=== PATIENT | female | born 1950 | race Caucasian/White ===

== ENCOUNTER 2017-12-08 17:48 | Inpatient (IN) | payer MEDICARE, OTHER ==
[2017-12-08 18:00] VITALS: BP 146/56
[2017-12-08] MEDS ORDERED: VISTARIL 25 MG25 M1 PO (18:35)
[2017-12-08] MEDS ORDERED: NEURONTIN 300300 M1 PO (18:35)
[2017-12-08] MEDS ORDERED: LASIX 40 MG TAB40 M2 PO (18:35)
[2017-12-08] MEDS ORDERED: HYDROCHLOROTHIA25 M2 PO (18:36)
[2017-12-08] MEDS ORDERED: KLOR-CON 1010 MEQ PO (18:36)
[2017-12-08] MEDS ORDERED: COZAAR 50 MG TA50 M2 PO (18:38)
[2017-12-08] MEDS ORDERED: BUSPIRONE HCL5 MG PO (18:38)
[2017-12-08] MEDS ORDERED: AMBIEN 5 MG TABL5 M1 PO (18:39)
[2017-12-08] MEDS ORDERED: LANTUS PO (18:40)
[2017-12-08] MEDS ORDERED: HUMULIN R100 UNIT/M SUBQ (18:43)
[2017-12-08] MEDS ORDERED: CELEXA40 MG PO (18:43)
[2017-12-08] MEDS ORDERED: OXYBUTYNIN 5 MG5 M2 PO (18:44)
[2017-12-08] MEDS ORDERED: CYMBALTA60 MG PO (18:44)
[2017-12-08 20:00] VITALS: BP 129/46
[2017-12-08 20:11] LABS: ALBUMIN 3.5 g/dL (3.4-5.0); ALKALINE PHOSPHATASE 148 U/L (46-116); ANION GAP < 0 mmol/L (7-16); BUN 30 mg/dL (7-18); CALCIUM 9.2 mg/dL (8.5-10.1); CHLORIDE 100 mmol/L (98-107); CO2 38 mmol/L (21-32); GLUCOSE 325 mg/dL (70-99); MAGNESIUM 2.2 mg/dL (1.8-2.4); NT-PRO BRAIN NAT PEPTIDE 109 pg/mL (<300); POTASSIUM 3.5 mmol/L (3.5-5.1); SGOT 16 U/L (15-37); SGPT 19 U/L (30-65); SODIUM 137 mmol/L (136-145); TOTAL BILIRUBIN 0.4 mg/dL (<0.1-1.0); TOTAL PROTEIN 7.1 g/dL (6.4-8.2); TROPONIN-I LEVEL <0.06 ng/mL (<0.06)
--- NOTE | 2017-12-08 20:28 | NUR ---
PATIENT WAS A DIRECT ADMIT WHO ARRIVED TO FLOOR AT 1800. PATIENT SETTLED TO ROOM. HISTORY, ASSESSMENT AND VITALS COMPLETED AND DOCUMENTED. APTIENT DENIES ANY PAIN AT THIS TIME BUT DOES STATE INTERMITTENT SHOOTING PAIN TO RIGHT FOOT. PATIENT HAS 2+ EDEMA WITH REDNESS AND WARMTH TO BLE. PATIENT IS UP AD MAURI. APTIENT HAS GOOD APPETITE. WILL CONTINUE TO MONITOR.
[2017-12-09 04:39] LABS: CALCIUM 9.1 mg/dL (8.5-10.1); CREATININE 0.8 mg/dL (0.6-1.3); MAGNESIUM 2.3 mg/dL (1.8-2.4); POTASSIUM 3.2 mmol/L (3.5-5.1)
--- NOTE | 2017-12-09 07:29 | NUR ---
PT SLEPT MOST OF SHIFT. ASSESSMENT DOCUMETNED. MEDS GIVEN PER E-MAR. PT REPORTED PAIN IN HER RIGHT LEG, TYLENOL GIVEN PER E-MAR WITH RELIEF. PT REPORTED RESTLESSNESS. CRITICAL BLOOD GLUCOSE OF 37 RECIEVED THIS AM, PT WAS A&OX4 SITTING ON SIDE OF BED STATING SHE "FELT FINE". 2 APPLE JUICE GIVEN WITH ELIZABETH CRACKERS AND PEANUT BUTTER. RECHECK WAS 64. ANOTHER APPLE JUICE WAS GIVEN, NEXT RECHECK WAS 127. IV STARTED. PT HAS NO COMPLATINTS AT THIS TIME.
[2017-12-09 08:00] VITALS: BP 129/46
[2017-12-09 10:53] LABS: ABSOLUTE EOSINOPHILS 0.6 thou/uL (0.0-0.7); ABSOLUTE LYMPHOCYTES 1.9 thou/uL (0.8-5.3); ABSOLUTE MONOCYTES 0.6 thou/uL (0.0-1.2); ABSOLUTE NEUTROPHILS 4.5 thou/uL (1.6-8.1); BASOPHILS 0.2 %; EOSINOPHILS 7.3 %; HEMATOCRIT 41.2 % (37.0-47.0); HEMOGLOBIN 13.5 gm/dL (12.0-15.0); MCH 29.5 pg (26.0-34.0); MCHC 32.8 g/dL (28.0-37.0); MCV 89.9 fL (80.0-100.0); MONOCYTES 8.5 %; MPV 9.2 fl. (7.2-11.1); NUCLEATED RBCS 0 /100WBC; PLATELET COUNT* 242 thou/uL (150-400); RBC 4.59 mil/uL (4.20-5.00); RDW-CV 13.5 % (10.5-14.5); WBC 7.6 thou/uL (4.0-11.0)
--- NOTE | 2017-12-09 12:44 | NUR ---
SW met with pt to complete initial assessment, introduce self, and SW role. Pt roommate in room as well. Pt alert, oriented. Pt did not express any dc needs. Pt feels safe at home and reports to be independent with ADLs and mobility. SW to continue to follow to assist with safe dc planning.
--- NOTE | 2017-12-09 14:27 | NUR ---
WOUND CARE NOTE: CONSULT RECEIVED FOR VENOUS STASIS PATIENT WITH A HISTORY OF PAD, COPD, SMOKING. HAS HAD STENTING IN THE PAST ON THE RIGHT LEG. PATIENT PRESENTS WITH 2-3+ PITTING EDEMA BILATERALLY. TO THE RIGHT LEG, THERE IS A PETECHIAL RASH EXTENDING FROM MEDIAL FOOT PROXIMALLY TO MID CALF. PATIENT HAS EXTREME PAIN WITH PALPATION OF RIGHT FOOT. STATES LEFT FOOT/LEG IS WITHOUT PAIN. 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 WILL WAIT FOR COMPRESSION UNTIL RESULTS ARE BACK. RECOMMEND ELEVATE BLE TO ASSIST WITH EDEMA TIGHT BLOOD GLUCOSE CONTROL APPLY LOTION BID AND PRN
[2017-12-09 15:45] VITALS: BP 157/61
[2017-12-09 20:00] VITALS: BP 115/62
--- NOTE | 2017-12-09 20:00 | NUR ---
PATIENT A/O X 4, DENIES PAIN, COMPLIANT WITH CARE, UP AD MAURI. ADMITTED FOR VASCULAR WORKUP ON BILAT LE, DUE TO PAIN/SWELLING, CTA WITH RUNOFF COMPLETED TODAY. CONT POC.
[2017-12-10 12:53] LABS: URINE BILIRUBIN NEGATIVE (Negative); URINE BLOOD 1+ (Negative); URINE CLARITY CLEAR; URINE COLOR YELLOW; URINE GLUCOSE-RANDOM 3+ (Negative); URINE KETONES NEGATIVE (Negative); URINE LEUKOCYTES-REFLEX NEGATIVE (Negative); URINE NITRITE-REFLEX NEGATIVE (Negative); URINE PROTEIN NEGATIVE (Negative); URINE SPECIFIC GRAVITY 1.015 (1.005-1.030); URINE UROBILINOGEN 0.2 E.U./dl (0.2-1.0)
[2017-12-10 13:25] LABS: BACTERIA-REFLEX 1-9 Few /HPF (None Seen); CASTS None Seen /LPF (None Seen); CRYSTALS None Seen /LPF (None Seen); MUCUS None Seen strn/LPF (None Seen); SQUAMOUS 0-3 Few /LPF (0-3); URINE RBC 0-2 Rare /HPF (0-2); URINE WBC-REFLEX None Seen /HPF (0-5)
[2017-12-10 16:00] VITALS: BP 151/61
--- NOTE | 2017-12-10 18:57 | NUR ---
RESUMED CARE THIS AM. A/O X 4, UP AD MAURI, NO DISTRESS NOTED, DENIES PAIN. VSS, GLUCOSE CONTROLLED WITH INSULIN, CONTINENT OF B/B. CONT POC.
[2017-12-10 19:30] VITALS: BP 151/52
--- NOTE | 2017-12-11 06:15 | NUR ---
ASSESSMENT COMPLETE. PT SLEPT THROUGH THE NIGHT WITHOUT ANY CONCERNS. PT DENIES PAIN AND N/V. PT IS UP AD MAURI AND TURNS SELF IN BED. PT IS ACCUCHECK. SEE ASSESSMENT AND VITALS FOR OTHER DETAILS. CALL LIGHT WITHIN REACH, WILL CONTINUE PLAN OF CARE
[2017-12-11 08:16] VITALS: BP 140/60
[2017-12-11 16:19] VITALS: BP 140/56
--- NOTE | 2017-12-11 18:59 | NUR ---
RESUMED CARE THIS AM. UROLOGY CONSULTED ORDERED ABD CT, 20G PLACED TO RAC, CT CONMPLETED. A/O X 4, UP AD MAURI, DENIES C/O DISCOMFORT. BLOOD SUGAR CONT TO BE ELEVATED, MAY NEED TO ESCALATE TO NEXT LEVEL OF SSI. WILL CONT POC.
[2017-12-11 19:50] VITALS: BP 129/60
[2017-12-12 04:07] LABS: CREATININE 0.9 mg/dL (0.6-1.3); POTASSIUM 4.2 mmol/L (3.5-5.1)
[2017-12-12 04:12] LABS: HEMATOCRIT 39.1 % (37.0-47.0); HEMOGLOBIN 13.1 gm/dL (12.0-15.0); MCH 29.8 pg (26.0-34.0); MCHC 33.6 g/dL (28.0-37.0); MCV 88.7 fL (80.0-100.0); MPV 9.2 fl. (7.2-11.1); RBC 4.41 mil/uL (4.20-5.00); RDW-CV 13.2 % (10.5-14.5); WBC 7.1 thou/uL (4.0-11.0)
--- NOTE | 2017-12-12 05:48 | NUR ---
ASSESSMENT COMPLETE. PT SLEPT THROUGH THE NIGHT WITHOUT ANY CONCERNS. PT NPO SINCE MIDNIGHT FOR VASCULAR CONSULT. PT REPORTS PAIN IN BLE, NO PAIN MEDICATION NEEDED. PT IS ON ROOM AIR WITH [place] SATS. PT DENIES N/V. PT HAS IV IN RIGHT AC, SALINE LOCKED. PT IS UP AD MAURI TO BATHROOM WITH STEADY GAIT. SEE ASSESSMENT AND VITALS FOR OTHER DETAILS. CALL LIGHT WITHIN REACH, WILL CONTINUE PLAN OF CARE.
[2017-12-12 08:42] VITALS: BP 150/63
[2017-12-12] MEDS ORDERED: ASPIR 8181 MG PO (09:20)
[2017-12-12] MEDS ORDERED: HYDROXYZINE HCL25 M1 PO (11:36)
[2017-12-12 11:46] VITALS: BP 150/63
--- NOTE | 2017-12-12 15:41 | NUR ---
RESUMED CARE THIS AM. DISCHARGE ORDERS RECEIVED, IV ACCESS REMOVED WITHOUT INCIDENT, DISCHARGE INSTRUCTIONS, FOLLOW UP APPTS AND HOME CARE DISCUSSED WITH AND GIVEN TO PATIENT, DENIES QUESTIONS AT THIS TIME. PERSONAL EFFECTS COLLECTED, ACCOUNTED FOR, INCOMPANY WITH PATIENT, AMBULATED WITHOUT DIFFICULTY TO MAIN ENTRANCE, SIG OTHER TO TRANSPORT HOME, LEFT UNIT IN STABLE CONDITION.
[2017-12-15] MEDS ORDERED: PLAVIX 75 MG TA75 M1 PO (17:37)
== END 2017-12-12 15:44 | disposition home or self-care (01) | DRG 300 ==
LOC: M.3W 17:48
PROVIDERS: Nurse Practitioner Family; ADMIT Internal Medicine
DX: I70.201 Unspecified atherosclerosis of native arteries of extremities, right leg (principal); N39.0 Urinary tract infection, site not specified; E11.51 Type 2 diabetes mellitus with diabetic peripheral angiopathy without gangrene; E11.65 Type 2 diabetes mellitus with hyperglycemia; I10 Essential (primary) hypertension; I87.8 Other specified disorders of veins; F17.200 Nicotine dependence, unspecified, uncomplicated; J44.9 Chronic obstructive pulmonary disease, unspecified; E66.9 Obesity, unspecified; R39.11 Hesitancy of micturition; R31.9 Hematuria, unspecified

== ENCOUNTER → 2017-12-15 | Outpatient (CLI) | payer MEDICARE, OTHER ==
[~2017-12-15] VITALS: Ht 167.6 cm; Wt 108.0 kg
[~2017-12-15] MED LIST: AMBIEN 5 MG TABL5 M1 PO; ASPIR 8181 MG PO; BUSPIRONE HCL5 MG PO; CELEXA40 MG PO; COZAAR 50 MG TA50 M2 PO; CYMBALTA60 MG PO; HUMULIN R100 UNIT/M SUBQ; HYDROCHLOROTHIA25 M2 PO; HYDROXYZINE HCL25 M1 PO; KLOR-CON 1010 MEQ PO; LANTUS PO; LASIX 40 MG TAB40 M2 PO; LIDOPATCH1 EACH TOP; MINOCIN100 MG PO; NEURONTIN 300300 M1 PO; OXYBUTYNIN 5 MG5 M2 PO; OXYCODONE HCL5 M1 PO; PLAVIX 75 MG TA75 M1 PO; TRAMADOL 50 MG50 MG PO; VISTARIL 25 MG25 M1 PO
[2017-12-15 11:50] VITALS: BP 147/58
[2017-12-15 12:03] LABS: HEMATOCRIT 41.2 % (37.0-47.0); HEMOGLOBIN 13.7 gm/dL (12.0-15.0); MCH 29.9 pg (26.0-34.0); MCHC 33.4 g/dL (28.0-37.0); MCV 89.6 fL (80.0-100.0); MPV 9.1 fl. (7.2-11.1); RBC 4.6 mil/uL (4.20-5.00); RDW-CV 13.1 % (10.5-14.5); WBC 7.2 thou/uL (4.0-11.0)
[2017-12-15 12:14] LABS: CALCIUM 8.6 mg/dL (8.5-10.1); CREATININE 1.1 mg/dL (0.6-1.3); POTASSIUM 3.9 mmol/L (3.5-5.1)
[2017-12-15 12:15] LABS: APTT 25.4 Seconds (25.0-31.3); PROTIME 9.9 Seconds (9.20-11.50)
[2017-12-15 12:23] LABS: ALBUMIN 3.4 g/dL (3.4-5.0); TOTAL BILIRUBIN 0.6 mg/dL (<0.1-1.0)
[2017-12-15 16:48] VITALS: BP 150/45
[2017-12-15 17:00] VITALS: BP 150/72
[2017-12-15 17:26] VITALS: BP 146/54
[2017-12-15 17:52] VITALS: BP 154/53
--- NOTE | 2017-12-28 08:57 | OP ---
[address] [address] OPERATIVE REPORT Name: MARIE MORRISON Room: [facility].#: [id number] Admission: 12/15/17 Attend Phys: Mandeep Peters Discharge: Date of : 54 Report #: [id number] THIS REPORT FOR: //name// CC: SUELLEN Ledezma DATE OF SERVICE: 12/15/2017 PREOPERATIVE DIAGNOSIS: Peripheral vascular disease with rest pain, right lower extremity. POSTOPERATIVE DIAGNOSIS: Peripheral vascular disease with rest pain, right lower extremity. SURGEON: Tre Ledezma DO ARMATURE TESTER: Jessika Bryant PA-C ANESTHESIA: Moderate sedation. ESTIMATED BLOOD LOSS: Minimal. PROCEDURE: 1. Ultrasound-guided access, left common femoral artery. 2. Aortogram. 3. Right lower extremity angiogram, catheter position third order. 4. Angioplasty and stent to the right superficial femoral artery with Bard [place] 6 mm x 150 angioplasty balloon, Bard LifeStent 6 mm x 170. 5. Drug-coated balloon angioplasty, proximal superficial femoral artery with Bard Lutonix 6 mm x 60. 6. Limited angiogram and diagnostic angiogram, left lower extremity with identification of in-stent restenosis of the left superficial femoral artery approximately 50%. 7. Angio-Seal closure, left common femoral artery. SPECIMEN: None. COMPLICATIONS: None. CONDITION: Stable. DISPOSITION: Home. INDICATIONS FOR THE PROCEDURE AND CONSENT: The patient is a 66-year-old female who presented clinic with severe pain in the right lower extremity. The patient was identified to additionally have complaints of hematuria with [facility] [address] [place] [address] OPERATIVE REPORT Name: MARIE MORRISON Room: [facility] [place] Chema#: [id number] Admission: 12/15/17 Attend Phys: Mandeep Peters Discharge: Date of : 54 Report #: [id number] clotting as well as severe swelling of the bilateral lower extremities, which is fairly new onset. The patient was admitted to the hospital with workup for concern for renal insufficiency, other acute cause of lower extremity swelling as well as to exclude medically serious causes of hematuria. The patient was seen by Medicine and Urology and identified not to have any of these concerns. The patient was then scheduled electively for right lower extremity angiogram as an outpatient following discharge. Risks and benefits were discussed including infection, bleeding, need for additional procedures including bypass. The patient wished to proceed, was consented and scheduled. PROCEDURE IN DETAIL: After timeout was performed, the patient was placed in supine position with sterile prep and drape of the anterior abdomen, bilateral groins, bilateral thighs. Ultrasound was utilized to identify the left common femoral artery and Seldinger technique was used to place 6-Pakistani sheath. Glidewire Advantage and UF catheter were advanced into the infrarenal aorta and aortogram performed. This demonstrated the aorta, bilateral common internal and external iliac arteries to be widely patent without flow limitation or stenosis. The catheter was then brought down to the aortogram position and negotiated the right external iliac artery without difficulty. I did have to take additional imaging to negotiate into the external iliac vessel as the wire preferentially went into the internal iliac. Once this was completed, I then took right lower extremity angiogram from this position. This demonstrated the profunda vessel to be widely patent and robust. The superficial femoral artery was proximally patent with occlusion in the mid SFA and reconstitution above the knee. I then systemically heparinized the patient with 6000 units of heparin with intention to treat this SFA occlusion. I then using Glidewire Advantage was able to negotiate a 6-Pakistani up and over sheath into the proximal superficial femoral artery. I then took dedicated views of the occlusion with the Seeker catheter in place just above the occlusion. This demonstrated wisp of flow, possibly amenable to primary crossing without assistance. I then used a Glidewire Advantage and was able to negotiate into the distal superficial femoral artery without significant difficulty. The area of near occlusion was then angioplastied with the Bard [place] balloon. Due to the long length of the stenosis and severity as well as the calcific nature, I felt this was best managed with stenting. I then obtained the 6 mm LifeStent and stented this area under fluoroscopic guidance. I did predilate this area with Bard [place] balloon. Once this was complete, I then post-dilated the stent with 6 mm balloon. I then reperformed outflow angiography which demonstrated distal popliteal and tibial vessels to be patent. The anterior tibial vessel was the dominant flow to the foot and ankle, but the other two were also patent and although delayed fill did fill completely. The proximal SFA was noted to be stenotic above the stent only approximately 50%. I did feel that this would later become issue and was best managed with drug-coated balloon angioplasty, which I performed with a 6 mm Lutonix. Repeat angiography demonstrated excellent radiographic result without flow limitation, stenosis or dissection. I then retracted the sheath into the left external iliac artery and performed a [facility] [address] [place] [address] OPERATIVE REPORT Name: MARIE MORRISON Room: [facility] Bear#: [id number] Admission: 12/15/17 Attend Phys: Mandeep Peters Discharge: Date of : 54 Report #: [id number] limited angiogram. This appeared to have patent common femoral vessel and proximal SFA stent was patent. I then performed diagnostic angiography of the distal segments of the SFA on the left given her history of stenting and this demonstrated the mid in-stent stenosis of approximately 50% in the mid SFA, otherwise was widely patent without concern. Her left common femoral artery appeared appropriate for Angio-Seal closure and a 6-Pakistani Angio-Seal was selected and deployed in standard fashion. Pressure was held for hemostasis. The patient tolerated the procedure well. Lap, needle and instrument counts correct. The patient was discharged home in stable condition. <ELECTRONICALLY SIGNED> By: Tre Ledezma DO 12/28/17 0857 [id number] [id number] Ledezma DO /nt
== END | disposition home or self-care (01) ==
LOC: M.CL 11:14
PROVIDERS: Surgery
DX: I70.221 Atherosclerosis of native arteries of extremities with rest pain, right leg (principal); I10 Essential (primary) hypertension; J44.9 Chronic obstructive pulmonary disease, unspecified; E11.69 Type 2 diabetes mellitus with other specified complication; F17.210 Nicotine dependence, cigarettes, uncomplicated; Z87.440 Personal history of urinary (tract) infections; Z79.899 Other long term (current) drug therapy; Z79.82 Long term (current) use of aspirin; Z79.4 Long term (current) use of insulin; Z79.01 Long term (current) use of anticoagulants

== ENCOUNTER 2018-03-29 13:33 | Inpatient (IN) | payer MEDICARE, OTHER ==
[~2018-03-29] VITALS: Ht 167.6 cm; Wt 111.1 kg
[~2018-03-29 13:33] MED LIST changes: -LIDOPATCH1 EACH TOP; -MINOCIN100 MG PO; -OXYCODONE HCL5 M1 PO; -TRAMADOL 50 MG50 MG PO
[2018-03-29 13:39] VITALS: BP 150/60
[2018-03-29 14:08] LABS: ABSOLUTE BASOPHILS 0.1 thou/uL (0.0-0.2); ABSOLUTE EOSINOPHILS 0.2 thou/uL (0.0-0.7); ABSOLUTE LYMPHOCYTES 0.9 thou/uL (0.8-5.3); ABSOLUTE MONOCYTES 0.5 thou/uL (0.0-1.2); ABSOLUTE NEUTROPHILS 3.9 thou/uL (1.6-8.1); BASOPHILS 1.3 %; EOSINOPHILS 4.2 %; HEMATOCRIT 36.1 % (37.0-47.0); HEMOGLOBIN 12.1 gm/dL (12.0-15.0); LYMPHOCYTES 16.5 %; MCH 30.2 pg (26.0-34.0); MCHC 33.6 g/dL (28.0-37.0); MCV 89.8 fL (80.0-100.0); MONOCYTES 8.4 %; MPV 7.9 fl. (7.2-11.1); NUCLEATED RBCS 0 /100WBC; PLATELET COUNT* 225 thou/uL (150-400); POLYS 69.6 %; RBC 4.02 mil/uL (4.20-5.00); RDW-CV 13.9 % (10.5-14.5); WBC 5.6 thou/uL (4.0-11.0)
[2018-03-29 14:15] LABS: ANION GAP 5 mmol/L (7-16); BUN 10 mg/dL (7-18); CALCIUM 8.9 mg/dL (8.5-10.1); CHLORIDE 100 mmol/L (98-107); CO2 35 mmol/L (21-32); CREATININE 0.9 mg/dL (0.6-1.3); GLUCOSE 223 mg/dL (70-99); POTASSIUM 3.6 mmol/L (3.5-5.1); SODIUM 140 mmol/L (136-145)
[2018-03-29 14:26] LABS: ALBUMIN 3.2 g/dL (3.4-5.0); ALKALINE PHOSPHATASE 139 U/L (46-116); NT-PRO BRAIN NAT PEPTIDE 174 pg/mL (<300); SGOT 24 U/L (15-37); SGPT 28 U/L (30-65); TOTAL BILIRUBIN 0.5 mg/dL (<0.1-1.0); TOTAL PROTEIN 6.7 g/dL (6.4-8.2); TROPONIN-I LEVEL <0.06 ng/mL (<0.06)
[2018-03-29 14:56] LABS: URINE BILIRUBIN NEGATIVE (Negative); URINE BLOOD TRACE (Negative); URINE CLARITY CLEAR; URINE COLOR YELLOW; URINE GLUCOSE-RANDOM TRACE (Negative); URINE KETONES NEGATIVE (Negative); URINE LEUKOCYTES-REFLEX NEGATIVE (Negative); URINE NITRITE-REFLEX NEGATIVE (Negative); URINE PROTEIN NEGATIVE (Negative); URINE SPECIFIC GRAVITY 1.015 (1.005-1.030)
--- NOTE | 2018-03-29 15:56 | EKG ---
[place] [address] ELECTROCARDIOGRAM REPORT Name: MARIE MORRISON Room: [place] [address] ADM IN .R.#: [id number] Admission: 03/29/18 Attend Phys: Kavon Damico MD Discharge: Date of : 54 Report #: [id number] THIS REPORT FOR: //name// [facility] ED Test Date: 2018-03-29 Test Time: 13:53:03 Pat Name: MARIE MORRISON Department: Room: Gender: F Rn Chemical Dependency: : 1950 Requested By: Lynn Alvares Order Number: [id number] MD: Kaushal Vaughan Measurements Intervals [place] Rate: 91 P: 41 ND: 152 QRS: 24 QRSD: 116 T: 40 QT: 381 QTc: 469 Interpretive Statements Sinus rhythm Incomplete right bundle branch block Baseline wander in lead(s) III Anterior precordial st-t changes; consider ischemia Electronically Signed On 03-29-2018 15:55:52 CDT by Kaushal Vaughan [email or web address] <ELECTRONICALLY SIGNED> By: Kaushal Vaughan MD, [facility] 03/29/18 1555 1353 [id number] Kaushal Vaughan MD, FAC /EPI
[2018-03-29 16:24] VITALS: BP 135/48
[2018-03-29 19:50] VITALS: BP 133/48
[2018-03-30 03:46] LABS: ABSOLUTE BASOPHILS 0.1 thou/uL (0.0-0.2); ABSOLUTE EOSINOPHILS 0.2 thou/uL (0.0-0.7); ABSOLUTE MONOCYTES 0.6 thou/uL (0.0-1.2); ABSOLUTE NEUTROPHILS 4.1 thou/uL (1.6-8.1); EOSINOPHILS 3.4 %; HEMATOCRIT 34.8 % (37.0-47.0); HEMOGLOBIN 11.5 gm/dL (12.0-15.0); LYMPHOCYTES 16.3 %; MCH 29.6 pg (26.0-34.0); MCHC 33.1 g/dL (28.0-37.0); MCV 89.4 fL (80.0-100.0); MONOCYTES 9.9 %; MPV 7.9 fl. (7.2-11.1); NUCLEATED RBCS 0 /100WBC; PLATELET COUNT* 237 thou/uL (150-400); POLYS 69.4 %; RBC 3.89 mil/uL (4.20-5.00); RDW-CV 13.8 % (10.5-14.5); WBC 5.9 thou/uL (4.0-11.0)
[2018-03-30 04:12] LABS: CALCIUM 8.5 mg/dL (8.5-10.1); CREATININE 0.7 mg/dL (0.6-1.3); POTASSIUM 3.8 mmol/L (3.5-5.1)
[2018-03-30 08:45] VITALS: BP 139/58
[2018-03-30 16:50] VITALS: BP 128/59
[2018-03-31 07:54] VITALS: BP 147/60
[2018-03-31 17:00] VITALS: BP 153/52
[2018-03-31 20:30] VITALS: BP 154/57
[2018-04-01 03:44] LABS: ABSOLUTE BASOPHILS 0.1 thou/uL (0.0-0.2); ABSOLUTE EOSINOPHILS 0.2 thou/uL (0.0-0.7); ABSOLUTE LYMPHOCYTES 0.9 thou/uL (0.8-5.3); ABSOLUTE MONOCYTES 0.5 thou/uL (0.0-1.2); ABSOLUTE NEUTROPHILS 3.4 thou/uL (1.6-8.1); EOSINOPHILS 4.4 %; HEMATOCRIT 36.1 % (37.0-47.0); LYMPHOCYTES 17.2 %; MCH 29.5 pg (26.0-34.0); MCHC 33.3 g/dL (28.0-37.0); MCV 88.5 fL (80.0-100.0); MONOCYTES 9.5 %; MPV 8.4 fl. (7.2-11.1); NUCLEATED RBCS 0 /100WBC; PLATELET COUNT* 223 thou/uL (150-400); POLYS 67.9 %; RBC 4.08 mil/uL (4.20-5.00); RDW-CV 13.8 % (10.5-14.5); WBC 5.1 thou/uL (4.0-11.0)
[2018-04-01 04:20] LABS: ALBUMIN 3.3 g/dL (3.4-5.0); CALCIUM 8.8 mg/dL (8.5-10.1); CREATININE 0.8 mg/dL (0.6-1.3); POTASSIUM 3.7 mmol/L (3.5-5.1); TOTAL BILIRUBIN 0.4 mg/dL (<0.1-1.0); TOTAL PROTEIN 6.2 g/dL (6.4-8.2)
[2018-04-01 08:00] VITALS: BP 140/53
[2018-04-01 15:41] VITALS: BP 143/96
[2018-04-01 23:57] VITALS: BP 133/53
[2018-04-02 08:00] VITALS: BP 126/48
--- NOTE | 2018-04-02 15:18 | CON ---
[address] [address] CONSULTATION Name: MARIE MORRISON [place] Room: [address] IN .R.#: [id number] Admission: 03/29/18 Attend Phys: Kavon Damico MD Discharge: Date of : 54 Report #: [id number] THIS REPORT FOR: //name// CC: Kavon KAPOOR Physician staff DICTATED BY: Maddie GOYAL DATE OF SERVICE: 03/30/2018 REASON FOR CONSULTATION: Peripheral artery disease, bilateral lower extremity cellulitis. HISTORY OF PRESENT ILLNESS: The patient is a very pleasant 67-year-old female who is known to our service with a history of peripheral artery disease. She has history of bilateral lower extremity revascularizations, most recently right superficial femoral artery angioplasty and stenting in 11/[address] Tre Ledezma. Her previous left lower extremity revascularization was in 02/2015 with superficial femoral and popliteal artery angioplasty and stenting. She has continued to follow Dr. Ledezma as an outpatient in the [facility] [place]. She underwent an arterial duplex on 03/29/2018, which demonstrated occlusion of her left superficial femoral artery stents. She presented to the Emergency Department yesterday with complaints of bilateral lower extremity erythema, pain and edema. She states her symptoms have been ongoing and worsening for several days, states she just couldn't take it anymore, so came to the Emergency Department. She reports her legs do feel better while dependent and dangling. She was experiencing chills at home. Denies any fevers or nausea. We have been asked to evaluate the patient for ongoing management of her peripheral artery disease. PAST MEDICAL HISTORY: 1. Peripheral artery disease. 2. Frequent urinary tract infections. 3. Hypertension. 4. Diabetes mellitus. 5. Chronic obstructive pulmonary disease. PAST SURGICAL HISTORY: 1. Atrial septal defect repair. 2. Bilateral lower extremity revascularizations. FAMILY HISTORY: Significant for hypertension and cancer. SOCIAL HISTORY: She is a current pack per day smoker. She denies any [place] [address] CONSULTATION Name: MARIE MORRISON [place] Room: [address] IN [facility].#: [id number] Admission: 03/29/18 Attend Phys: Kavon Damico MD Discharge: Date of : 54 Report #: [id number] ALLERGIES: 1. SULFA. 2. TRIMETHOPRIM. HOME MEDICATIONS: 1. Aspirin 81 mg daily. 2. Neurontin 300 mg twice daily. 3. Vistaril 25 mg 3 times daily. 4. Lasix 40 mg daily. 5. Klor-Con 10 mEq daily. 6. Cozaar 50 mg daily. 7. Ambien 10 mg at bedtime. 8. Lantus insulin 30 units at bedtime. 9. Humulin R 1 unit subcutaneously before meals. 10. Celexa 40 mg daily. 11. Cymbalta 60 mg daily. 12. Plavix 75 mg daily. 13. BuSpar 5 mg 3 times daily. REVIEW OF SYSTEMS: A 12-point review of systems has been reviewed and is negative except for the above-mentioned in the history of present illness. PHYSICAL EXAMINATION: VITAL SIGNS: Temperature 37.0, heart rate 100, respiratory rate 16, blood pressure is 139/58. GENERAL: She is alert, oriented, in no acute distress. She is obese. HEENT: Head is normocephalic, atraumatic. NECK: Supple without jugular venous distention or carotid bruit. HEART: Tachycardia, no murmur noted. CHEST: Lungs are diminished throughout, wheezing throughout. ABDOMEN: Soft, nontender, positive bowel sounds. EXTREMITIES: She has palpable bilateral radial and femoral pulses with positive Doppler signals in bilateral posterior tibialis and dorsalis pedis arteries. She has 3+ edema to bilateral lower extremities, slightly worse on the left than the right, as well as cellulitis with erythema in bilateral lower legs. NEUROLOGIC: Alert and oriented with no focal neurologic deficits. LABORATORY DATA: Hemoglobin 11.5, hematocrit 34.8, white blood cell count 5.9, platelets 237. Sodium 141, potassium 3.8, chloride 104, CO2 32, BUN 10, creatinine 0.7, glucose is 171. IMAGING: A venous duplex is negative for deep vein thrombosis. ASSESSMENT AND PLAN: 1. Bilateral lower extremity cellulitis. [place] [address] CONSULTATION Name: MARIE MORRISON Room: [address] [place] [facility]#: [id number] Admission: 03/29/18 Attend Phys: Kavon Damico MD Discharge: Date of : 54 Report #: [id number] therapy per primary. I did discuss elevating her legs for edema control. 2. Peripheral artery disease. Her arterial duplex from Tuesday demonstrates occlusion of her right superficial femoral artery stents, no significant stenosis identified on the left. Her cellulitis is currently a little worse on the left than the right. We will check a CTA runoff to better delineate her disease. We would like her acute infection to clear some prior to considering any further revascularization. We thank you for the opportunity to participate in the care of the patient. Please feel free to contact our office with any questions or concerns. <ELECTRONICALLY SIGNED> By: Tre Ledezma DO 04/02/18 1518 1325 [id number] Butts DO /nt
[2018-04-02 16:09] VITALS: BP 126/48
[2018-04-02 21:45] VITALS: BP 131/55
[2018-04-03 05:27] LABS: HEMATOCRIT 33.4 % (37.0-47.0); HEMOGLOBIN 11.2 gm/dL (12.0-15.0); MCH 30.1 pg (26.0-34.0); MCHC 33.6 g/dL (28.0-37.0); MCV 89.3 fL (80.0-100.0); MPV 8.5 fl. (7.2-11.1); RBC 3.74 mil/uL (4.20-5.00); RDW-CV 13.6 % (10.5-14.5); WBC 4.2 thou/uL (4.0-11.0)
[2018-04-03 06:06] LABS: ALBUMIN 2.9 g/dL (3.4-5.0); CALCIUM 8.3 mg/dL (8.5-10.1); CREATININE 0.8 mg/dL (0.6-1.3); MAGNESIUM 1.9 mg/dL (1.8-2.4); POTASSIUM 3.3 mmol/L (3.5-5.1); TOTAL BILIRUBIN 0.4 mg/dL (<0.1-1.0); TOTAL PROTEIN 5.7 g/dL (6.4-8.2)
--- NOTE | 2018-04-03 07:22 | CON ---
[address] [address] CONSULTATION Name: MARIE MORRISON Room: [address] IN M.R.#: [id number] Admission: 03/29/18 Attend Phys: Kavon Damico MD Discharge: Date of : 54 Report #: [id number] THIS REPORT FOR: //name// CC: [facility] DATE OF SERVICE: 03/31/2018 ATTENDING PHYSICIAN: Kavon Damico MD. REASON FOR EVALUATION: Bilateral lower extremity inflammatory eruption, also has right upper extremity bullous eruption. HISTORY OF PRESENT ILLNESS: Chart reviewed, patient examined. This is a 67-year-old with known vasculopathy actually in November of this year, underwent angioplasty and stent placement in the right superficial femoral artery. She presented after several days of worsening claudication, noted bilateral signs and symptoms including redness, was found to have occlusion of the stent; however, during the procedure, felt to have infiltration, now has inflammatory bullous type eruption involving the mid portion of the right upper extremity associated with pain. It is not clear that she has had significant fevers. She was empirically started on antibiotics, specifically vancomycin. Denies significant pulmonary or gastrointestinal related complaints. Vascular workup in progress. ALLERGIES: BACTRIM. CURRENT MEDICATIONS: Include oxycodone, minocycline, aspirin, duloxetine, losartan, potassium, vancomycin, pantoprazole, furosemide, insulin, gabapentin, enoxaparin. PAST MEDICAL HISTORY: As noted above, hypertension, COPD, diabetes mellitus complicated by vasculopathy, peripheral vascular disease. SOCIAL HISTORY: A [id number] history of smoking, continues to present. No illicit drug use. No ethanol use. FAMILY HISTORY: Noncontributory. REVIEW OF SYSTEMS: As above. PHYSICAL EXAMINATION: GENERAL: She is in [id number] distress secondary to the lower extremity pain, which she describes up into the pelvis. It is very typical of claudication. She notes it feels better when she dangles [place] [address] CONSULTATION Name: MARIE MORRISON [place] Room: [address] IN [facility].#: [id number] Admission: 03/29/18 Attend Phys: Kavon Damico MD Discharge: Date of : 54 Report #: [id number] somewhat chronically ill. VITAL SIGNS: Temperature 98.2, pulse 84, respirations 15, blood pressure 147/60. SKIN: Warm, dry, no rashes. HEENT: Otherwise, unremarkable. NECK: Supple. LUNGS: Diminished breath sounds. HEART: Regular. ABDOMEN: Soft. EXTREMITIES: Bilateral lower extremities have ischemic changes noted. There is some mild to moderate degree of inflammation bilaterally. There are no gangrenous changes noted distally, no breakdown, diminished pulses. Right upper extremity has bullous type eruption, typical of an infiltration extruding into the skin. There is moderate degree of inflammation as well, though it does not appear to be a cellulitic. LABORATORY DATA: Blood cultures sterile thus far. Electrolytes: Sodium 141, potassium 3.8, chloride 104, bicarbonate is 32, BUN and creatinine 10 and 0.7. CBC: White count of 5.9, H and H 11.5 and 34.8, platelets of 237. Venous Doppler of lower extremity showed no evidence of DVT. Urinalysis unremarkable. Liver functions, alkaline phosphatase of 139. Total protein 6.7, albumin 3.2, lactic acid 1.8. Chest x-ray: No acute process. ASSESSMENT: Bilateral lower extremity inflammatory eruption, certainly cannot exclude a component of skin and soft tissue infection with cellulitis, although I think it is mainly ischemia related. We will continue current approach as prescribed with the empiric antibiotics. Secondly, the bullous eruption, I think that is again apparently typical of more of an infiltration of IV with extrusion of contrast dye, although there is some cross coverage certainly. Continue wound care as prescribed. Await Vascular Surgery. Clearly, symptoms are such that likely we will manage with adjustment of her medical regimen. <ELECTRONICALLY SIGNED> By: Gordon Dailey MD 04/03/18 0722 1329 [id number] Dailey MD /nt
[2018-04-03 09:00] VITALS: BP 137/62
[2018-04-03 16:00] VITALS: BP 110/53
[2018-04-03 21:42] VITALS: BP 143/62
[2018-04-04 07:30] VITALS: BP 149/56
[2018-04-04 16:00] VITALS: BP 147/50
[2018-04-04 20:15] VITALS: BP 157/61
[2018-04-05] MEDS ORDERED: TRAMADOL 50 MG50 MG PO (00:45)
[2018-04-05] MEDS ORDERED: LIDOPATCH1 EACH TOP (00:45)
[2018-04-05] MEDS ORDERED: MINOCIN100 MG PO (00:45)
[2018-04-05] MEDS ORDERED: OXYCODONE HCL5 M1 PO (00:45)
[2018-04-05 06:48] LABS: HEMATOCRIT 32.7 % (37.0-47.0); MCH 30.1 pg (26.0-34.0); MCHC 33.7 g/dL (28.0-37.0); MCV 89.4 fL (80.0-100.0); MPV 8.4 fl. (7.2-11.1); RBC 3.66 mil/uL (4.20-5.00); RDW-CV 13.3 % (10.5-14.5); WBC 4.2 thou/uL (4.0-11.0)
[2018-04-05 06:49] LABS: CALCIUM 8.5 mg/dL (8.5-10.1); CREATININE 0.7 mg/dL (0.6-1.3); MAGNESIUM 1.9 mg/dL (1.8-2.4); POTASSIUM 3.5 mmol/L (3.5-5.1)
[2018-04-05 07:45] VITALS: BP 117/69
[2018-04-05 09:16] VITALS: BP 117/69
== END 2018-04-05 17:46 | disposition home health service (06) | DRG 602 ==
LOC: M.ERS 13:33 → M.TBA-ER 14:56 → M.3W 14:56
PROVIDERS: Internal Medicine; Physician Assistant; ADMIT Internal Medicine
PROC: 02HV33Z Insertion of Infusion Device into Superior Vena Cava, Percutaneous Approach (ICD-10-PCS; principal; 2018-03-31)
PROC: B548ZZA Ultrasonography of Superior Vena Cava, Guidance (ICD-10-PCS; principal; 2018-03-31)
DX: L03.116 Cellulitis of left lower limb (principal); J18.8 Other pneumonia, unspecified organism; T82.856A Stenosis of peripheral vascular stent, initial encounter; L03.115 Cellulitis of right lower limb; I73.9 Peripheral vascular disease, unspecified; E11.65 Type 2 diabetes mellitus with hyperglycemia; E66.9 Obesity, unspecified; I10 Essential (primary) hypertension; D64.9 Anemia, unspecified; J44.9 Chronic obstructive pulmonary disease, unspecified; F17.210 Nicotine dependence, cigarettes, uncomplicated; T23.601A Corrosion of second degree of right hand, unspecified site, initial encounter; Y83.8 Other surgical procedures as the cause of abnormal reaction of the patient, or of later complication, without mention of misadventure at the time of the procedure; Y93.89 Activity, other specified; Y92.89 Other specified places as the place of occurrence of the external cause; Y99.8 Other external cause status; Z88.1 Allergy status to other antibiotic agents; Z88.2 Allergy status to sulfonamides; Z79.2 Long term (current) use of antibiotics; Z79.82 Long term (current) use of aspirin; Z79.899 Other long term (current) drug therapy; Z87.440 Personal history of urinary (tract) infections; Z68.39 Body mass index [BMI] 39.0-39.9, adult; Z79.4 Long term (current) use of insulin; Z82.49 Family history of ischemic heart disease and other diseases of the circulatory system